=== PATIENT | male | born 1935 | race Hispanic/Latino ===

== ENCOUNTER 2022-10-20 10:15 | Emergency (ER) | payer OTHER, MEDICARE ==
[~2022-10-20] VITALS: Ht 165.1 cm; Wt 111.1 kg
[2022-10-20 10:53] LABS: CREATININE 0.9 mg/dL (0.5-1.5)
[2022-10-20 10:58] LABS: ALBUMIN 3.2 g/dL (3.5-5.0); TOTAL PROTEIN, SERUM 7.3 g/dL (6.0-8.3)
[2022-10-20 11:22] LABS: BASOPHILS % (AUTO) 0.5 % (0.0-5.0); EOSINOPHILS % (AUTO) 0.5 % (0.0-8.0); LYMPHOCYTES % (AUTO) 30.1 % (21.0-51.0); MEAN CORPUSCULAR HGB CONC 33.3 g/dL (32.0-36.0); MEAN CORPUSCULAR VOLUME 93.3 fL (79-99); NEUTROPHILS % (AUTO) 55.4 % (40.0-77.0); PLATELET COUNT (AUTO) 199 K/uL (130-400); RED BLOOD CELL COUNT(AUTO) 4.61 MIL/uL (4.50-6.20); RED CELL DISTRIBUTION WIDTH 13.7 % (11.0-15.5); WHITE BLOOD COUNT (AUTO) 5.8 K/uL (4.8-10.8)
[2022-10-20 11:30] LABS: APPEARANCE,URINE CLEAR (CLEAR); BILIRUBIN,URINE NEGATIVE (NEGATIVE); COLOR,URINE LIGHT-YELLOW (YELLOW); GLUCOSE, URINE (UA) NEGATIVE (NEGATIVE); KETONES,URINE NEGATIVE (NEGATIVE); LEUKOCYTE ESTERASE ,URINE NEGATIVE Leu/uL (NEGATIVE); NITRATE,URINE NEGATIVE (NEGATIVE); OCCULT BLOOD,URINE SMALL (NEGATIVE); PROTEIN,URINE NEGATIVE (NEGATIVE); UROBILINOGEN,URINE 0.2 mg/dL (0.2-1.0)
[2022-10-20 11:33] LABS: MUCUS,URINE RARE LPF (None Seen); RBC,URINE 0-1 /HPF (0-1); SQUAMOUS EPITHELIAL CELL,UR RARE /HPF (0-2); WBC,URINE 0-1 /HPF (0-1)
[2022-10-20] MEDS ORDERED: 0.9%NACL 1000ML 1,000 ML IV ONE (16:30)
[2022-10-20 19:31] VITALS: BP 142/68
== END 2022-10-20 20:16 | disposition home or self-care (01) ==
LOC: EDH 10:15
DX: E86.0 Dehydration (principal); J32.9 Chronic sinusitis, unspecified; E78.00 Pure hypercholesterolemia, unspecified; I10 Essential (primary) hypertension; Z79.899 Other long term (current) drug therapy
CPT/HCPCS: 99285; 96360; 70450; 84484 ×2; 80053; 83880; 85025; 81001; 36415; 93005; J7030

== ENCOUNTER 2022-10-23 23:58 | Emergency (ER) | payer OTHER, MEDICARE ==
[~2022-10-23] VITALS: Ht 167.6 cm; Wt 117.9 kg
[2022-10-24 00:30] LABS: APPEARANCE,URINE CLEAR (CLEAR); BILIRUBIN,URINE NEGATIVE (NEGATIVE); COLOR,URINE COLORLESS (YELLOW); GLUCOSE, URINE (UA) NEGATIVE (NEGATIVE); KETONES,URINE NEGATIVE (NEGATIVE); LEUKOCYTE ESTERASE ,URINE NEGATIVE Leu/uL (NEGATIVE); NITRATE,URINE NEGATIVE (NEGATIVE); OCCULT BLOOD,URINE SMALL (NEGATIVE); PROTEIN,URINE NEGATIVE (NEGATIVE); UROBILINOGEN,URINE 0.2 mg/dL (0.2-1.0)
[2022-10-24 01:50] LABS: BASOPHILS % (AUTO) 0.5 % (0.0-5.0); EOSINOPHILS % (AUTO) 2.9 % (0.0-8.0); HEMATOCRIT 42.8 % (42-54); LYMPHOCYTES % (AUTO) 31.9 % (21.0-51.0); MEAN CORPUSCULAR HEMOGLOBIN 31.3 pg (27.0-33.0); MEAN CORPUSCULAR HGB CONC 34.1 g/dL (32.0-36.0); MEAN CORPUSCULAR VOLUME 91.6 fL (79-99); MONOCYTES % (AUTO) 7.8 % (3.0-13.0); NEUTROPHILS % (AUTO) 56.8 % (40.0-77.0); PLATELET COUNT (AUTO) 243 K/uL (130-400); RED BLOOD CELL COUNT(AUTO) 4.67 MIL/uL (4.50-6.20); RED CELL DISTRIBUTION WIDTH 13.4 % (11.0-15.5); WHITE BLOOD COUNT (AUTO) 8.2 K/uL (4.8-10.8)
[2022-10-24 02:01] LABS: CREATININE 0.7 mg/dL (0.5-1.5); POTASSIUM 3.9 mmol/L (3.5-5.1)
[2022-10-24 02:05] LABS: ALBUMIN 3.4 g/dL (3.5-5.0)
[2022-10-24 02:27] LABS: B-TYPE NATRIURETIC PEPTIDE 58 pg/mL (0-100)
[2022-10-24] MEDS ORDERED: HYDRALAZINE 20MG/ML VIAL ONE (03:36)
[2022-10-24] MEDS ORDERED: HYDRALAZINE 20MG/ML VIAL IV ONE (04:00)
[2022-10-24 04:34] VITALS: BP 138/44
== END 2022-10-24 04:54 | disposition home or self-care (01) ==
LOC: EDH 23:58
DX: N40.1 Benign prostatic hyperplasia with lower urinary tract symptoms (principal); I10 Essential (primary) hypertension; E78.00 Pure hypercholesterolemia, unspecified; Z91.14 Patient's other noncompliance with medication regimen; Z87.440 Personal history of urinary (tract) infections; Z60.2 Problems related to living alone
CPT/HCPCS: 99285; 84484; 80053; 83880; 85025; 81001; 36415; 96374; 71045; 51701; 93005; J0360